=== PATIENT | male | born 1960 | race Caucasian/White ===

== ENCOUNTER 2022-03-02 18:17 | Observation (INO) ==
[2022-03-02 20:13] LABS: Glucose,Urine (UA) Negative (Negative); Ketones,Urine Negative (Negative); Mucus,Urine Occasional /LPF (Occasional); Protein,Urine 30 mg/dL (Negative); RBC,Urine 1 /HPF (0-4); Squamous Epithelial Cell,Urine Occasional /HPF (0-10); Urine Appearance Clear (Clear); Urine Color Yellow (Yellow); Urine pH 5.5 (4.5-8.0)
[2022-03-02 20:14] LABS: Bilirubin,Urine Small mg/dL (Negative); Blood, Urine Negative (Negative); Nitrite,Urine Negative (Negative)
[2022-03-02] MEDS ORDERED: PANTOPRAZOLE 40 MG VIAL IV STA (20:21)
[2022-03-02] MEDS ORDERED: ONDANSETRON 4 MG/2 ML VIAL IV STA (20:21)
[2022-03-02] MEDS ORDERED: HYDROmorphone 1 MG/1 ML SYRINGE IV STA (20:21)
[2022-03-02] MEDS ORDERED: SODIUM CHLORIDE 0.9% 1,000 ML IV STA (20:21)
[2022-03-02 20:57] LABS: Basophils % 0.3 % (0.0-0.8); Eosinophils # 0.2 10*3/uL (0.0-0.87); Eosinophils % 1.9 % (0.00-10.9); Hematocrit 39.2 VOL% (42.0-52.0); Hemoglobin 13.1 GM/DL (14.0-18.0); Immature Granulocytes % 0.5 %; Immature Granulocytes Absolute 0.06 #; Lymphocytes # 1.4 10*3/uL (1.4-4.0); Lymphocytes % 12.1 % (21.2-54.2); Mean Corpuscular HGB Conc 33.4 GM/DL (32-36); Mean Corpuscular Volume 91.2 FL (87-102); Monocytes # 1.1 10*3/uL (0.11-0.8); Monocytes % 9.3 % (1.7-12.7); Neutrophils % 75.9 % (38.7-73.9); Platelet Count 114 T/CUMM (130-400); Red Cell Distribution Width 12.7 % (9.3-17.3); White Blood Count 11.7 T/CUMM (4-12)
[2022-03-02 21:18] LABS: Lactic Acid 1.1 MMOL/L (0.4-2.0)
[2022-03-02 21:25] LABS: Alanine Aminotransferase 45 U/L (16-61); Alkaline Phosphatase 112 U/L (45-117); Amylase 21 U/L (25-115); Aspartate Amino Transferase 46 U/L (0-37); Blood Urea Nitrogen 19 MG/DL (7-18); Calcium 8.6 MG/DL (8.5-10.1); Carbon Dioxide 26 MMOL/L (21-32); Chloride 104 MMOL/L (98-107); Glucose 86 MG/DL (74-106); Potassium 3.8 MMOL/L (3.5-5.1); Sodium 136 MMOL/L (136-145); Total Protein 6.8 G/DL (6.4-8.2)
[2022-03-02] MEDS ORDERED: amLODIPine 5 MG TABLET PO STA (22:37)
[2022-03-02] MEDS ORDERED: hydrALAZINE 20 MG/1 ML VIAL IV STA (23:25)
[2022-03-02] MEDS ORDERED: hydrALAZINE 20 MG/1 ML VIAL ONE (23:25)
[2022-03-02] MEDS ORDERED: ONDANSETRON 4 MG/2 ML VIAL IV PRN (23:30)
[2022-03-02] MEDS ORDERED: hydrALAZINE 20 MG/1 ML VIAL IV PRN (23:30)
[2022-03-02] MEDS ORDERED: ZALEPLON 5 MG CAPSULE PO PRN (23:30)
[2022-03-02] MEDS ORDERED: PROMETHAZINE 25 MG/1 ML VIAL IM PRN (23:30)
[2022-03-02] MEDS ORDERED: CIPROFLOXACIN INJ 400 MG/200 ML PREMIX IV SCH (23:45)
[2022-03-03] MEDS: HYDROmorphone 1 MG/1 ML SYRINGE IV PRN ×4 (00:16→19:36)
[2022-03-03] MEDS: metroNIDAZOLE INJ 500 MG/100 ML PREMIX IV SCH ×4 (01:40→22:45)
[2022-03-03] MEDS ORDERED: HYDROmorphone 1 MG/1 ML SYRINGE IV ONE (02:44)
[2022-03-03] MEDS: SODIUM CHLORIDE 0.9% 1,000 ML IV SCH ×2 (02:59→16:05)
[2022-03-03] MEDS ORDERED: INFLUENZA VIRUS VACCINE 0.5 ML SYRINGE IM ONE (03:08)
[2022-03-03 06:45] LABS: Basophils % 0.2 % (0.0-0.8); Eosinophils # 0.1 10*3/uL (0.0-0.87); Eosinophils % 1.2 % (0.00-10.9); Hematocrit 39.9 VOL% (42.0-52.0); Immature Granulocytes % 0.6 %; Immature Granulocytes Absolute 0.07 #; Lymphocytes # 1.6 10*3/uL (1.4-4.0); Lymphocytes % 13.1 % (21.2-54.2); Mean Corpuscular HGB Conc 32.6 GM/DL (32-36); Mean Corpuscular Volume 92.4 FL (87-102); Mean Platelet Volume 8.8 FL (9.6-12.0); Monocytes # 0.9 10*3/uL (0.11-0.8); Monocytes % 7.5 % (1.7-12.7); Neutrophils % 77.4 % (38.7-73.9); Platelet Count 117 T/CUMM (130-400); Red Blood Count 4.32 MC/CUMM (3.8-5.5); Red Cell Distribution Width 12.7 % (9.3-17.3); White Blood Count 11.9 T/CUMM (4-12)
[2022-03-03 07:11] LABS: Albumin 2.9 G/DL (3.4-5.0); Bilirubin,Total 1.2 MG/DL (0.20-1.00); Calcium 8.7 MG/DL (8.5-10.1); Osmolality,Calculated 274.8 MOS/KG (273-304); Potassium 4.6 MMOL/L (3.5-5.1); Total Protein 7.2 G/DL (6.4-8.2)
[2022-03-03] MEDS ORDERED: ENOXAPARIN 40 MG/0.4 ML SYRINGE SUBCUT SCH (09:00)
[2022-03-03] MEDS ORDERED: LEVOFLOXACIN INJ 750 MG/150 ML PREMIX IV SCH (10:00)
[2022-03-03] MEDS: ALBUTEROL/IPRATROPIUM 3 ML NEB RESP TX SCH ×2 (14:27→19:26)
[2022-03-03 21:09] VITALS: BP 117/58
== END 2022-03-03 23:33 | disposition left against medical advice (07) ==
LOC: N.ED 18:17 → N.EDINP 18:17 → N.3E 03-03 00:32 → SUATTDRO 03-03 09:32
PROVIDERS: ADMIT Family Medicine; ATTEND Internal Medicine